=== PATIENT | male | born 1975 | race Caucasian/White ===

== ENCOUNTER 2022-10-11 08:39 | Outpatient (CLI) | payer OTHER, SELFPAY | END 2022-10-11 08:40 | disposition home or self-care (01) | LOC: NFLDREF 23:49 | PROVIDERS: PCP Family Medicine; Referring Provider Family Medicine; Visit Provider Family Medicine | DX: E78.5 Hyperlipidemia, unspecified (principal); I10 Essential (primary) hypertension; R53.83 Other fatigue; R19.4 Change in bowel habit; Z12.5 Encounter for screening for malignant neoplasm of prostate | CPT/HCPCS: 80053; 80061; 84153 ==

== ENCOUNTER 2022-11-10 08:38 | Outpatient (CLI) | payer OTHER, SELFPAY | END 2022-11-10 08:39 | disposition home or self-care (01) | PROVIDERS: PCP Family Medicine; Visit Provider Family Medicine | DX: R53.83 Other fatigue (principal); I10 Essential (primary) hypertension; R63.5 Abnormal weight gain | CPT/HCPCS: 80048; 83516; 84443 ==

== ENCOUNTER 2023-06-19 16:49 | Outpatient (CLI) | payer OTHER, SELFPAY | END 2023-06-19 16:50 | disposition home or self-care (01) | PROVIDERS: PCP Family Medicine; Visit Provider Family Medicine | DX: I10 Essential (primary) hypertension (principal); R63.5 Abnormal weight gain; E78.5 Hyperlipidemia, unspecified; R53.83 Other fatigue; D61.818 Other pancytopenia; R73.03 Prediabetes | CPT/HCPCS: 80053; 80061; 84153 ==

== ENCOUNTER 2023-08-02 15:04 | Outpatient (CLI) | payer OTHER, SELFPAY ==
--- NOTE | 2023-08-02 15:30 | CRLHL7_ITS ---
For Patients: As a result of the Century Cures Act, medical imaging exams and procedure reports are released immediately into your electronic medical record. You may view this report before your referring provider. If you have questions, please contact your health care provider. Indication: Low back pain, rectal issues Technique: Multiplanar, multisequence, MRI of the lumbar spine, obtained without contrast. Comparison: Lumbar spine x-ray 06/19/2023 Findings: The normal lumbar lordosis is preserved. No significant spondylolisthesis. Vertebral body heights are grossly maintained. No evidence of acute osseous abnormality. Intrinsic bone marrow signal appears within normal limits. The conus medullaris terminates at approximately L1-2. No suspicious findings in the prevertebral and paraspinal soft tissues. Included SI joints are unremarkable. T12-L1 through L3-L4: No significant neural foraminal or spinal canal stenosis. L4-L5: Shallow posterior disc bulge, mild facet arthropathy. Minimal right, moderate left neural foraminal stenosis. No spinal canal stenosis. No significant neural foraminal or spinal canal stenosis. L5-S1: Mild facet arthropathy. Mild right, mild-moderate left neural foraminal narrowing. No spinal canal stenosis. Impression: 1. Mild lower lumbar spondylosis. No significant spinal canal stenosis. Normal spinal alignment. 2. At L4-L5, moderate left neural foraminal stenosis. 3. At L5-S1, mild right and mild-moderate left neural foraminal narrowing. Dictated by Crystal Walter MD @ 08/03/2023 10:49:43 AM (Electronically Signed)
== END 2023-08-02 15:05 | disposition home or self-care (01) ==
PROVIDERS: PCP Family Medicine; Visit Provider Family Medicine
DX: M54.9 Dorsalgia, unspecified (principal); M47.896 Other spondylosis, lumbar region; M48.061 Spinal stenosis, lumbar region without neurogenic claudication; R19.8 Other specified symptoms and signs involving the digestive system and abdomen; M62.89 Other specified disorders of muscle
CPT/HCPCS: 72148

== ENCOUNTER 2023-08-22 12:51 | Outpatient (CLI) | payer OTHER, SELFPAY ==
--- NOTE | 2023-08-22 13:00 | MR_ITS ---
[facility] [address] [address] Phone:?[phone] Fax:?[phone] Referring Physician Information: Christopher Lomas M.D. [id number] [address] Phone:?[phone] Fax:?[phone] Patient:Albina Delong D.O.B:?1975 Sex:?Male Phone:?[phone] [facility] MRN:?[id number] Exam Date:?08/22/2023 EXAM: MRI CERVICAL SPINE WITHOUT CONTRAST CLINICAL INFORMATION: Suspected herniated disc. TECHNICAL INFORMATION: T1, T2 FSE and GRE, and STIR sagittal thin sections through the cervical spine with T2 FSE and GRE axial sections at selected levels. INTERPRETATION: Partially visualized intracranial structures appear normal. No Chiari malformation. Normal signal in the cervical spinal cord. Normal cervical lordosis. Vertebral body heights are maintained. Normal atlantodental and atlantooccipital articulations. Paraspinal soft tissues appear normal. C2-3, C3-4, C4-5: Normal posterior disc contours and normal facet joints. No central or foraminal stenosis. C5-6: Mild disc degeneration, dorsal disc bulge and uncovertebral spurring, normal facet joints. Mild to moderate central stenosis and ventral cord flattening. Moderate right greater than left foraminal stenosis encroaching the C6 nerve roots. C6-7, C7-T1, T1-2: Normal posterior disc contours and normal facet joints. No central or foraminal stenosis. CONCLUSION: 1. C5-6 disc bulge and mild to moderate central stenosis, moderate bilateral foraminal stenosis. 2. No acute fracture, infection, or neoplasm. Electronically signed on 08/23/2023 4:06:00 PM by Minesh Pak M.D.
== END 2023-08-22 12:52 | disposition home or self-care (01) ==
LOC: MRI 12:55
PROVIDERS: PCP Family Medicine; Visit Provider Nurse Practitioner Family
DX: R20.0 Anesthesia of skin (principal); M50.222 Other cervical disc displacement at C5-C6 level; M48.02 Spinal stenosis, cervical region; R20.2 Paresthesia of skin
CPT/HCPCS: 72141